=== PATIENT | female | born 1995 | race Caucasian/White ===

== ENCOUNTER 2020-05-07 01:01 | Emergency (ER) | payer BC, MEDICAID ==
[~2020-05-07] VITALS: Ht 160 cm; Wt 86.0 kg
--- NOTE | 2020-05-07 01:21 | NUR ---
pt walked to room 10, on cr monitor, and in gown, in bed. siderails up x2, and call light within reach. no distress. pt states pain is a 3 on a scale of 1-10. WINK CUTTER OPERATOR to bedside to see pt.
--- NOTE | 2020-05-07 02:14 | NUR ---
pt in commercial fisherman bed. to eval pt and interview at this time. no changes. pt calm and cooperative.
--- NOTE | 2020-05-07 02:58 | NUR ---
pt resting in bed. no complaints at this time. call schultz within reach. side rails up x2 in bed.
--- NOTE | 2020-05-07 03:33 | NUR ---
report called to Kimmy GUTIÉRREZ on the floor. pt transferred to the room with dilan toribio [facility]. no distress.
[2020-05-07] MEDS ORDERED: METHOTREXATE/PF 25 MG/ML, 2ML IM ONE (04:00)
[2020-05-07 04:06] VITALS: BP 103/63
[2020-05-07] MEDS: ACETAMINOPHEN 325 MG TABLET PO PRN ×2 (05:39→10:06)
[2020-05-07 07:32] VITALS: BP 109/70
[2020-05-07 10:42] VITALS: BP 113/77
== END 2020-05-07 11:38 ==
LOC: ED 01:31 → UNDOADMIN 03:50 → EDIP 03:50 → 4NE 03:57 → EDIP 03:57 → 4NE 11:33 → DCLOUNGE 11:33 → ED 11:38 → UNDODISIN 11:38
DX: O00.202 Left ovarian pregnancy without intrauterine pregnancy (principal); Z3A.01 Less than 8 weeks gestation of pregnancy
CPT/HCPCS: 96372; 99284; J9250; 99285

== ENCOUNTER 2020-05-16 13:49 | Day surgery (SDC) | payer BC, MEDICAID ==
[~2020-05-16] VITALS: Ht 160 cm; Wt 87.4 kg
[2020-05-16] MEDS ORDERED: BUPIVACAINE/PF 0.25% ONE (14:00)
[2020-05-16 14:10] VITALS: BP 120/83
[2020-05-16] MEDS ORDERED: LACTATED RINGERS 1,000 ML IV SCH (14:30)
[2020-05-16] MEDS ORDERED: CHLORHEXIDINE 15 ML UDC MM ONE (14:30)
[2020-05-16 14:36] LABS: MICROSCOPIC NOT IND
[2020-05-16] MEDS ORDERED: KETOROLAC 30 MG/1 ML ONE (14:46)
[2020-05-16] MEDS ORDERED: SUGAMMADEX 200 MG/2 ML IVPush ONE (14:46)
[2020-05-16] MEDS ORDERED: SUCCINYLCHOLINE 20 MG/ML, 10ML ONE (14:46)
[2020-05-16] MEDS ORDERED: DEXAMETHASONE 4 MG/ML, 1ML ONE (14:46)
[2020-05-16] MEDS ORDERED: ONDANSETRON 2MG/ML, 2ML ONE (14:46)
[2020-05-16] MEDS ORDERED: PROPOFOL 10 MG/ML, 20ML ONE (14:46)
[2020-05-16] MEDS ORDERED: ROCURONIUM 10 MG/ML,10ML ONE (14:46)
[2020-05-16 14:49] LABS: BASOPHILS % (AUTO) 1 % (0-1); EOSINOPHILS % (AUTO) 2 % (1-7); LYMPHOCYTES % (AUTO) 27 % (22-44); MEAN CORPUSCULAR HEMOGLOBIN 29.3 pg (27.0-34.8); MEAN CORPUSCULAR HGB CONC 33.3 g/dL (32.4-35.8); MEAN PLATELET VOLUME 7.4 fL (7.4-10.4); MONOCYTES % (AUTO) 6 % (2-9); NEUTROPHILS % (AUTO) 64 % (42-75); PLATELET COUNT 399 x10^3/uL (130-400); RED BLOOD COUNT 4.34 x10^6/uL (3.82-5.3); RED CELL DISTRIBUTION WIDTH 12.6 % (9.6-15.2)
[2020-05-16 15:00] LABS: MD NO
[2020-05-16] MEDS ORDERED: MEPERIDINE/PF 25MG/0.5ML IVPush PRN (15:00)
[2020-05-16] MEDS ORDERED: PROMETHAZINE 25 MG/ML, 1ML IVPush PRN (15:00)
[2020-05-16] MEDS ORDERED: EPHEDRINE 50 MG/ML, 1ML IVPush PRN (15:00)
[2020-05-16] MEDS ORDERED: ONDANSETRON 2MG/ML, 2ML IVPush PRN (15:00)
[2020-05-16] MEDS ORDERED: DIPHENHYDRAMINE 50 MG/ML, 1ML IVPush PRN (15:00)
[2020-05-16] MEDS ORDERED: PROMETHAZINE 12.5 MG SUPP PR PRN (15:00)
[2020-05-16] MEDS ORDERED: hydrALAzine 20 MG/ML, 1ML IV PRN (15:00)
[2020-05-16] MEDS ORDERED: LABETALOL 5MG/ML, 20ML IV PRN (15:00)
[2020-05-16] MEDS ORDERED: ALBUTEROL SULFATE 2.5 MG/3 ML NPPB PRN (15:00)
[2020-05-16] MEDS ORDERED: ACETAMINOPHEN 325 MG TABLET PO PRN (15:00)
[2020-05-16] MEDS ORDERED: DIAZEPAM 5 MG/ML, 2ML IVPush PRN (15:00)
[2020-05-16] MEDS ORDERED: MIDAZOLAM 1 MG/ML, 2ML IV PRN (15:00)
[2020-05-16] MEDS ORDERED: FENTANYL PF 100 MCG/2ML ONE (16:08)
[2020-05-16] MEDS ORDERED: MEPERIDINE/PF 25MG/ML,1ML ONE (16:08)
[2020-05-16] MEDS: FENTANYL PF 100 MCG/2ML IV PRN ×2 (16:15→16:22)
[2020-05-16] MEDS ORDERED: OXYcodone 5 MG/5 ML ORAL.SOL UDC ONE (16:18)
[2020-05-16] MEDS ORDERED: DIAZEPAM 5 MG/ML, 2ML ONE (16:18)
[2020-05-16] MEDS: OXYcodone 5 MG/5 ML ORAL.SOL UDC PO PRN ×2 (16:26→19:41)
[2020-05-16] MEDS ORDERED: HYDROmorphone 1 MG/ML, 1ML INJ ONE (16:34)
[2020-05-16] MEDS: HYDROmorphone 1 MG/ML, 1ML INJ IVPush PRN ×2 (16:35→16:56)
[2020-05-16] MEDS ORDERED: OXYcodone/APAP 5/325MG TABLET PO ONE (19:30)
[2020-05-16] MEDS ORDERED: PROMETHAZINE 25 MG SUPP PR ONE (19:34)
== END 2020-05-16 20:18 | disposition home or self-care (01) ==
LOC: OR 13:49
PROVIDERS: ATTEND Obstetrics & Gynecology
DX: O00.102 Left tubal pregnancy without intrauterine pregnancy (principal); Z20.822 Contact with and (suspected) exposure to COVID-19; Z79.899 Other long term (current) drug therapy
CPT/HCPCS: 36415; 59151; 81003; 85025; 86900; 87635; 88305; J0330; J1100; J1170; J1885; J2175; J2405; J2704; J3010; J3360; J7120